=== PATIENT | male | born 1940 | race Caucasian/White ===

== ENCOUNTER 2016-06-02 10:55 | Emergency (ER) | payer MEDICARE, OTHER ==
[~2016-06-02] VITALS: Ht 172.7 cm; Wt 93.0 kg
[2016-06-02 11:02] VITALS: BP 183/106; PULSE 100; RESP 20; TEMP 97.6; O2SAT 97
[2016-06-02] MEDS ORDERED: SODIUM CHLOR 0.9% 1000 ML INJ 1,000 ML IV SCH (11:15)
[2016-06-02] MEDS ORDERED: SODIUM CHLORIDE 0.9% FLUSH 5 ML FLUSH IVF PRN (11:15)
[2016-06-02] MEDS ORDERED: KETOROLAC TROMETHAMINE 30 MG/ML (IVP) VIAL IVP ONE (11:15)
--- NOTE | 2016-06-02 11:19 | PD ---
HPI Chief Complaint: Flank/Kidney Pain Time Seen by Provider: 11:08 Travel History International Travel<30 days: No Contact w/Intl Traveler<30days: No Traveled to known affect area: No History of Present Illness HPI This 76-year-old male had an onset of left flank pain today. It started as morning. He has not had pain like this before. The pain does not radiate. He has not had any fever or dysuria. He has no history of abdominal surgery. He does have a history of coronary artery disease. He has had bypass surgery and stents. He is on Plavix. The pain was quite severe this morning and this eased up a little bit but he is still having residual pain. He has a history of prostate cancer. He is visiting here from [place]. He has a history of diabetes PFSH Past Medical History Hx Anticoagulant Therapy: Yes (PLAVIX) Cardiovascular Problems: Yes (CABG X2) Diabetes: Yes Social History Tobacco Use: No Allergies-Medications (Allergen,Severity, Reaction): Coded Allergies: No Known Allergies (Unverified , 06/02/16) Reported Meds & Prescriptions Reported Meds & Active Scripts Active Reported Novolog Flexpen Inj (Insulin Aspart) 300 Unit/3 Ml Pen 15 Units SQ TIDAC Levemir Flextouch Pen Inj (Insulin Detemir) 300 unit/3 ML Pen 30 Units SQ BID Plavix (Clopidogrel Bisulfate) 75 Mg Tab 75 Mg PO DAILY Review of Systems General / Constitutional: No: Fever, Chills Eyes: No: Diploplia, Blurred Vision HENT: No: Headaches Cardiovascular: No: Chest Pain or Discomfort Gastrointestinal: No: Nausea, Vomiting Genitourinary: Positive: Flank Pain Musculoskeletal: No: Myalgias, Arthralgias Neurologic: No: Weakness Physical Exam Narrative GENERAL: Well-developed male SKIN: Warm and dry. HEAD: Atraumatic. Normocephalic. EYES: Pupils equal and round. No scleral icterus. No injection or drainage. ENT: No nasal bleeding or discharge. Mucous membranes pink and moist. NECK: Trachea midline. No JVD. CARDIOVASCULAR: Regular rate and rhythm. No murmur appreciated. RESPIRATORY: No accessory muscle use. Clear to auscultation. Breath sounds equal bilaterally. GASTROINTESTINAL: Abdomen soft, non-tender, nondistended. Hepatic and splenic margins not palpable. There is left CVA tenderness MUSCULOSKELETAL: No obvious deformities. No clubbing. No cyanosis. No edema. NEUROLOGICAL: Awake and alert. No obvious cranial nerve deficits. Motor grossly within normal limits. Normal speech. PSYCHIATRIC: Appropriate mood and affect; insight and judgment normal. Data Data Last Documented VS Vital Signs Date Time Temp Pulse Resp B/P Pulse Ox O2 Delivery O2 Flow Rate FiO2 06/02/16 11:45 190/87 06/02/16 11:02 97.6 100 20 97 Orders Basic Metabolic Panel (Bmp) (06/02/16 11:15) Complete Blood Count With Diff (06/02/16 11:15) Urinalysis - C+S If Indicated (06/02/16 11:15) Ct Abd/Pel W/O Iv Contrast (06/02/16 11:15) Ketorolac Inj (Toradol Inj) (06/02/16 11:15) Sodium Chloride 0.9% Flush (Ns Flush) (06/02/16 11:15) Sodium Chlor 0.9% 1000 Ml Inj (Ns 1000 M (06/02/16 11:15) Insulin Human Regular Inj (Novolin R Inj (06/02/16 12:15) Labs Laboratory Tests Test 06/02/16 11:20 White Blood Count 6.2 TH/MM3 Red Blood Count 5.88 MIL/MM3 Hemoglobin 17.0 GM/DL Hematocrit 51.9 % Mean Corpuscular Volume 88.4 FL Mean Corpuscular Hemoglobin 28.9 PG Mean Corpuscular Hemoglobin 32.7 % Concent Red Cell Distribution Width 13.4 % Platelet Count 237 TH/MM3 Mean Platelet Volume 8.3 FL Neutrophils (%) (Auto) 73.2 % Lymphocytes (%) (Auto) 16.2 % Monocytes (%) (Auto) 8.4 % Eosinophils (%) (Auto) 1.3 % Basophils (%) (Auto) 0.9 % Neutrophils # (Auto) 4.5 TH/MM3 Lymphocytes # (Auto) 1.0 TH/MM3 Monocytes # (Auto) 0.5 TH/MM3 Eosinophils # (Auto) 0.1 TH/MM3 Basophils # (Auto) 0.1 TH/MM3 CBC Comment DIFF FINAL Differential Comment Urine Color STRAW Urine Turbidity SLIGHT Urine pH 6.0 Urine Specific [place] 1.021 Urine Protein 100 mg/dL Urine Glucose (UA) 1000 OR GREATER mg/dL Urine Ketones TRACE mg/dL Urine Occult Blood LARGE Urine Nitrite NEG Urine Bilirubin NEG Urine Leukocyte Esterase NEG Urine RBC 25-49 /hpf Urine WBC 0-2 /hpf Urine Squamous Epithelial 0-5 /hpf Cells Microscopic Urinalysis Comment CULT NOT INDICATED Sodium Level 141 MEQ/L Potassium Level 3.6 MEQ/L Chloride Level 105 MEQ/L Carbon Dioxide Level 25.3 MEQ/L Anion Gap 11 MEQ/L Blood Urea Nitrogen 15 MG/DL Creatinine 1.10 MG/DL Estimat Glomerular Filtration 65 ML/MIN Rate Random Glucose 261 MG/DL Calcium Level 9.2 MG/DL [facility] Medical Decision Making Medical Screen Exam Complete: Yes Emergency Medical Condition: Yes Medical Record Reviewed: Yes Differential Diagnosis Differential includes pyelonephritis, renal colic, musculoskeletal pain Narrative Course Urine shows red cells. CT shows left distal ureteral stone. There is also a mass on the kidney which needs further evaluation. I discussed with the patient. He lives in [place] and will have follow-up there. He has also run out of his lisinopril and I will prescribe that Diagnosis Primary Impression: Renal colic on left side Scripts Lisinopril 40 Mg Tab40 Mg PO DAILY #30 TAB Ref 0 Prov:Roosevelt Zamora MD 06/02/16 Oxycodone-Acetaminophen (Percocet)5-325 mg Tab1-2 Tab PO Q4H PRN (PAIN) #30 TAB Ref 0 Prov:Roosevelt Zamora MD 06/02/16 Disposition: 01 DISCHARGE HOME Condition: Stable Roosevelt Zamora MD Jun 02, 2016 11:19
[2016-06-02] MEDS ORDERED: NOVOINJ3 SQ (11:25)
[2016-06-02] MEDS ORDERED: PLAV75TA29 PO (11:25)
[2016-06-02] MEDS ORDERED: INSU1INJ5 SQ (11:25)
[2016-06-02 11:41] LABS: BLOOD, URINE LARGE (NEG); KETONE, URINE TRACE mg/dL (NEG); NITRITE,URINE NEG (NEG)
[2016-06-02 11:44] LABS: GLUCOSE,URINE 1000 OR GREATER mg/dL (NEG)
[2016-06-02 11:45] VITALS: BP 190/87
[2016-06-02 11:45] LABS: URINE COLOR STRAW (YELLW/STRAW)
[2016-06-02 11:47] LABS: COMMENT (UR) CULT NOT INDICATED; CULTURE IF INDICATED CULT NOT INDICATED; SQUAMOUS EPITHELIAL CELL URINE 0-5 /hpf (0-5); WBC, URINE 0-2 /hpf (0-5)
[2016-06-02 11:48] LABS: AUTOMATED NEUTROPHIL # 4.5 TH/MM3 (1.8-7.7); BASOPHIL # 0.1 TH/MM3 (0-0.2); BASOPHIL % 0.9 % (0.0-2.0); EOSINOPHIL # 0.1 TH/MM3 (0-0.4); EOSINOPHIL % 1.3 % (0.0-4.0); HEMATOCRIT 51.9 % (39.0-51.0); HEMO FLAGS DIFF FINAL; LYMPH % 16.2 % (9.0-44.0); MEAN CELL VOLUME 88.4 FL (80.0-100.0); MEAN CORPUSCULAR HEMOGLOBIN 28.9 PG (27.0-34.0); MEAN CORPUSCULAR HGB CONC 32.7 % (32.0-36.0); MONO % 8.4 % (0.0-8.0); NEUT % 73.2 % (16.0-70.0); PLATELET COUNT 237 TH/MM3 (150-450); RED BLOOD COUNT 5.88 MIL/MM3 (4.50-5.90); RED CELL DISTRIBUTION WIDTH 13.4 % (11.6-17.2); WHITE BLOOD COUNT 6.2 TH/MM3 (4.0-11.0)
[2016-06-02 11:50] LABS: POTASSIUM 3.6 MEQ/L (3.5-5.1)
[2016-06-02 11:53] LABS: BICARBONATE 25.3 MEQ/L (21.0-32.0)
--- NOTE | 2016-06-02 12:11 | RADHPO ---
EXAM DATE/TIME: 06/02/2016 11:33 [facility] COMPARISON: No previous studies available for comparison. INDICATIONS : Left flank pain. ORAL CONTRAST: No oral contrast ingested. RADIATION DOSE: 24.98 CTDIvol (mGy) MEDICAL HISTORY : Cardiovascular disease. Diabetes. SURGICAL HISTORY : CABG ENCOUNTER: Initial ACUITY: 1 day PAIN SCALE: 4/10 LOCATION: Left flank TECHNIQUE: Volumetric scanning of the abdomen and pelvis was performed. Using automated exposure control and ad justment of the mA and/or kV according to patient size, radiation dose was kept as low as reasonably achievable to obtain optimal diagnostic quality images. FINDINGS: LOWER LUNGS: The visualized lower lungs are clear. LIVER: Homogeneous density without lesion. There is no dilation of the biliary tree. No calcified gallston es. SPLEEN: Normal size without lesion. PANCREAS: Within normal limits. KIDNEYS: There are tiny nonobstructing kidney stones bilaterally. There is mild perinephric fatty tissue stran ding on the left and a minimal degree of hydronephrosis and hydroureter down to the level of a 4.5 mm stone in the distal ureter just above the ureterovesical junction. There are no ureteral stones on t he right. There is a 2.7 cm solid-appearing exophytic mass arising from the upper pole anteromedial c ortex of the left kidney. This needs to be further evaluated with a contrasted exam, either pre-and p ostcontrast renal protocol CT or pre-and post contrast renal protocol MRI. If confirmed, this lesion does appear amenable to cryoablation treatment ADRENAL GLANDS: Within normal limits. VASCULAR: Severe atherosclerotic changes. No evidence of aortic aneurysm. BOWEL/MESENTERY: Distal colonic diverticula. No abnormal dilatation or wall thickening or focal inflammatory changes. ABDOMINAL WALL: Within normal limits. RETROPERITONEUM: There is no lymphadenopathy. BLADDER: No wall thickening or mass. REPRODUCTIVE: Within normal limits. INGUINAL: There is no lymphadenopathy or hernia. MUSCULOSKELETAL: Within normal limits for patient age. CONCLUSION: 4.5 mm distal left ureteral stone with slight left hydronephrosis. 2.7 cm mass arising in the upper pole anteromedial cortex of the left kidney needs to be further eval uated with contrasted study. Pre-postcontrast renal protocol MRI would be optimal. If confirmed, this lesion appears amenable to cryoablation treatment. Tiny nonobstructing bilateral kidney stones also noted. Elia Mills MD on June 02, 2016 at 11:53 Board Certified Radiologist. This report was verified electronically.
[2016-06-02] MEDS ORDERED: INSULIN HUMAN REGULAR 1,000 UNITS/10 ML VIAL SQ ONE (12:15)
[2016-06-02 12:19] VITALS: RESP 18
[2016-06-02] MEDS ORDERED: LISI40TA PO (12:24)
[2016-06-02] MEDS ORDERED: PERC5TAB12 PO (12:24)
[2016-06-02] MEDS ORDERED: LISINOPRIL 20 MG TAB PO SCH (12:30)
== END 2016-06-02 12:46 | disposition home or self-care (01) ==
LOC: PHED 10:55
DX: N23 Unspecified renal colic (principal); N20.1 Calculus of ureter; E11.9 Type 2 diabetes mellitus without complications; Z85.46 Personal history of malignant neoplasm of prostate; Z79.01 Long term (current) use of anticoagulants
CPT/HCPCS: 74176; 80048; 81001; 85025; 96361; 96372; 96374; 99284; J1815; J1885; J7030